=== PATIENT | female | born 1965 | race Caucasian/White ===

== ENCOUNTER 2020-09-16 10:30 | Day surgery (SDC) | payer BC, OTHER ==
[~2020-09-16] VITALS: Ht 160 cm; Wt 59.9 kg
[~2020-09-16 10:30] MED LIST: ATORVASTATIN CA10 MG PO; CELEXA 20 MG TA20 MG PO; COQ-10100 MG PO; ELDERBERRY-VIT1 EACH PO; GLUCOSAMINE &1 EACH PO; MULTI FOR HER1 EAC2 PO; NORVASC5 MG PO; OLMESARTAN-HCT1 EAC2 PO
[2020-09-16 11:07] VITALS: BP 148/81
--- NOTE | 2020-09-20 06:13 | O ---
[facility] [place] [address] OPERATIVE REPORT Name: ABHIJEET GUADARRAMA Room #: DEP [facility].#: [id number] Admission: 09/16/20 Attend Phys: Mack Lucio MD Discharge: 09/16/20 Date of : 63 Report #: [id number] THIS REPORT FOR: cc: FAM - No family physician/PCP FAM - Family physician unknown Mack Lucio MD ~ PREOPERATIVE DIAGNOSIS: Tumor of left lower lid and medial canthus with nasolacrimal duct obstruction. POSTOPERATIVE DIAGNOSIS: Tumor of left lower lid and medial canthus with nasolacrimal duct obstruction, basal cell carcinoma. PROCEDURE: Excision of tumor of left lower lid and medial canthus with frozen section, control of margins, myocutaneous advancement flap repair of defect with plastic repair of canaliculus, silicone lacrimal intubation and nasal surgical videoendoscopy. SURGEON: Mack Lucio MD. MAINTENANCE HELPER UTILITY ENGINEER: None. ANESTHESIA: General. COMPLICATIONS: None. INDICATIONS FOR SURGERY: This pleasant 55-year-old woman has a nodular ulcerative mass in her medial left lower lid directly overlying her punctum and horizontal canaliculus. The lesion appears to be a basal cell carcinoma. She presents today for excision of the lesion with frozen sections and subsequent reconstruction of that defect to include recanalization of the lacrimal outflow tract. Informed consent was obtained to include but not limited to the potential risk for loss of vision, bleeding, infection, failure to improve the problem, the potential need for further surgery or treatment. DESCRIPTION OF PROCEDURE: The patient was taken to the operating room where general anesthesia was administered. The left medial canthal area, the left lateral canthus, the left cheek and the left side of the nose were anesthetized with Xylocaine with epinephrine mixed with Marcaine and Wydase. The left side of the nose was then packed with Afrin-soaked cottonoids. The patient was subsequently prepped and draped in the usual sterile fashion. A fine tip skin marking pen was then utilized to outline the lesion including approximately 1-2 mm of normal appearing tissue around its margins. The incisions were then made perpendicularly across the eyelid margin with a Katty scissor and drawn to a point in the area of the inferior orbital rim. Hemostasis was achieved with diligent pinpoint monopolar cautery. The specimen was then oriented on a drawing for the waiting pathologist. She snap froze that specimen and found [address] [address] OPERATIVE REPORT Name: ABHIJEET GUADARRAMA Room #: DEP [facility] Ann#: [id number] Admission: 09/16/20 Attend Phys: Mack Lucio MD Discharge: 09/16/20 Date of : 63 Report #: [id number] that the lateral margin was clear, but the medial margin was positive and that the lesion was indeed a basal cell carcinoma. An additional 1-2 mm of tissue were then obtained medially, cutting through the horizontal canaliculus just short of the common canaliculus. Hemostasis was re-achieved. The pathologist then snap froze that tissue and found that the margin was now clear. Attention was then turned to repair the ensuing defect. The defect was larger than it had been anticipated initially. The left lateral canthus was then clamped with a Eden clamp, following which a sharp canthotomy and cantholysis was performed. A myocutaneous flap was then developed laterally to be rotated medially. Hemostasis was then re-achieved. The flap was then advanced, but not secured. Silicone lacrimal tubes were then passed through the superior and inferior lacrimal apparatus and retrieved under the inferior turbinate with the aid of a Stokes hook and the video endoscope. No significant intranasal pathology was seen. The previously elevated flap was then secured with interrupted buried Vicryl sutures deep ensuring that the tube was not compressed with the advanced flap. The tube slid freely through the system in the reconstructed area after being advanced and secured with the Vicryl sutures. The eyelid margin was reapproximated with interrupted 7-0 Vicryl sutures. The subcutaneous structures and the skin were then closed with further subcutaneous Vicryl sutures and then a final closure of 6-0 plain. The silicone lacrimal tubes were then secured to themselves with 3 square throws and subsequently to the lateral wall of the nose with one 5-0 Prolene suture. Once again no significant intranasal pathology was seen video endoscopically. The wound was then cleaned and dressed with erythromycin ointment. The patient subsequently transported to the recovery area having tolerated the procedures well with no anesthetic or operative complications being noted. <ELECTRONICALLY SIGNED> By: Mack Lucio MD 09/20/20 0613 [id number] [id number] Mack Lucio MD /nt
--- NOTE | 2020-09-20 11:09 | PATH ---
[facility] [place] [address] PATHOLOGY RPT PROCEDURE Name: ABHIJEET GUADARRAMA Room #: DEP [facility].#: [id number] Admission: 09/16/20 Date of : 63 Discharge: 09/16/20 Report #: [id number] Path Case #: [id number] [facility] Accession Number: [id number] . 01 Material submitted: . PART A: eyelid - LESION EYELID LEFT. Modifiers: left PART B: eyelid - ADDITIONAL MEDIAL MARGIN . 01 Clinical history: . EXCISION LESION EYELID . 02 Frozen section diagnosis: . FROZEN SECTION DIAGNOSIS: (by Dr. Cristy Oseguera) . FSA1. Lesion eyelid left excision: - MEDIAL MARGIN POSITIVE. . FSB1. Additional medial margin, re-excision: - Cyst in dermis/negative for invasive carcinoma on FS slides. . These findings are discussed with Dr. Mack Lucio in OR6 at [facility] and a written report is placed in the patient's chart. (IUV:pit 09/16/2020) . FROZEN SECTION GROSS DESCRIPTION: A. The specimen is received fresh from the OR labeled with the patient's name, and "lesion eyelid left" consists of an inverted triangular specimen with the base measuring approximately 6 mm and the base to height measuring 7 mm. There is skin present on the surface. The lesion is present at the superior end of the specimen and measures approximately 0.4 cm. At this point the specimen is inked black from lateral to inferior, the inferior half of the inferior to medial margin is inked blue and the superior half of the inferior to medial margin is inked red. At this point the specimen is serially sectioned into three pieces and submitted entirely for frozen section as FSA1, subsequently submitted for permanent sections as A1. . B. The specimen is received fresh from the OR labeled with the patient's name, and "additional medial margin lesion eyelid left" consists of a 0.5 cm excision with a thin strip of skin on the surface. The true margin is marked by the surgical ink intraoperatively by Dr. Lucio. This margin is submitted en face for frozen section as FSB1, subsequently submitted for permanent sections as B1. (IUV:pit 09/16/2020) . Frozen section performed at [facility], [address] [place] [address] , [place] [address]. IZV/QTP [address] [address] PATHOLOGY RPT PROCEDURE Name: ABHIJEET GUADARRAMA [id number] Admission: 09/16/20 Date of : 63 Discharge: 09/16/20 Report #: [id number] Path Case #: [id number] . 03 Diagnosis: A. Skin (left eyelid lesion): - Nodular basal cell carcinoma is identified. - Medial margin positive for involvement. . B. Skin (additional medial margin): - Squamous epithelial-lined dermal cyst identified. No evidence of malignancy. . (LIZ:hallie; 09/17/2020) MBR 09/17/2020 1646 Local . 03 Comment: All final surgical resection margins after evaluation of both parts A and B, B representing re-excision of medial margin, are considered to be free of involvement. (LIZ:hallie; 09/17/2020) . 03 Electronically signed: . Yoandy Jordan MD, Pathologist NPI- [id number] . 01 Gross description: . SEE FROZEN SECTION FOR GROSS DESCRIPTION /QTP 09/16/2020 2109 Local . 03 Pathologist provided ICD-10: C44.1192, L72.9 . 03 CPT . 269009, 275082, 529667, 263921 Specimen Comment: A courtesy copy of this report has been sent to [phone] Specimen Comment: Report sent to Performed at: 01 [facility] [address] [id number] MD Duke Sullivan MD Phone: [phone] Performed at: 02 [facility] [address] [place], [place] [id number] MD Cristy Oseguera MD Phone: [phone] Performed at: 03 [facility] [address] [id number] MD Yoandy Jordan MD Phone: [phone]
== END 2020-09-16 15:25 | disposition home or self-care (01) ==
LOC: OR 10:30 → TBA 10:31 → OR 11:03
PROVIDERS: ATTEND Ophthalmology
DX: C44.1192 Basal cell carcinoma of skin of left lower eyelid, including canthus (principal); H04.552 Acquired stenosis of left nasolacrimal duct; L72.9 Follicular cyst of the skin and subcutaneous tissue, unspecified; I10 Essential (primary) hypertension; E78.00 Pure hypercholesterolemia, unspecified; Z98.890 Other specified postprocedural states; Z79.899 Other long term (current) drug therapy
CPT/HCPCS: 50010; 50101; 50386; 50398; 50445; 51636; 51777; 56528; 56531; 62110; 62900; 64037; 70005